=== PATIENT | female | born 1960 | race Caucasian/White ===

== ENCOUNTER 2020-09-07 12:12 | Outpatient (CLI) | payer OTHER, SELFPAY ==
[2020-09-07 12:54] LABS: Anion Gap 8 mmol/L (8-16); Blood Urea Nitrogen 31 mg/dL (7-17); Calcium 9.6 mg/dL (8.4-10.2); Carbon Dioxide 37 mmol/L (22-30); Chloride 91 mmol/L (98-107); Estimated Glomerular Filt Rate 38; Glucose 119 mg/dL (65-105); Potassium 2.9 mmol/L (3.4-5.0); Sodium 136 mmol/L (137-145)
== END 2020-09-07 12:13 | disposition home or self-care (01) ==
LOC: ANHLAB 12:16
PROVIDERS: PCP Physician Assistant; Visit Provider Internal Medicine Cardiovascular Disease
DX: I15.9 Secondary hypertension, unspecified (principal); R00.2 Palpitations
CPT/HCPCS: 36415; 80048